=== PATIENT | female | born 1995 | race African-American/Black ===

== ENCOUNTER 2025-09-17 09:57 | Emergency (ER) | payer SELFPAY ==
[2025-09-17 09:58] VITALS: BP 157/89; PULSE 91; RESP 18; TEMP 36.1; O2SAT 100; BMI 36.7
--- NOTE | 2025-09-17 10:31 | CT_ITS ---
EXAM: NONCONTRAST CT SCAN OF THE HEAD CLINICAL HISTORY: Headache, mass TECHNIQUE: Serial axial series through the head were obtained without contrast. 2-D coronal and sagittal reformats were then obtained. FINDINGS: Brain: There is no acute large territorial infarct, intracranial hemorrhage, midline shift or mass effect. The sella and pineal gland regions appear unremarkable. There is no evidence of cerebellar tonsillar herniation. Ventricles: There is no acute hydrocephalus. Basilar cisterns are patent. Paranasal sinuses: Well-aerated Mastoid air cells: Well-aerated. Calvarium: The bony calvarium is intact. Orbits: The bilateral globes are symmetric, without retrobulbar compressive mass lesion or hemorrhage. CT/Brain/Head without Contrast IMPRESSION: No acute intracranial pathology. Reading [facility]
--- NOTE | 2025-09-17 10:32 | EDS_ITS ---
HPI History of Present Illness Chief Complaint: Headache Narrative Narrative: Patient is a 30-year-old female presenting to the emergency department for a headache that started 3 days ago. She reports she has had headaches before but they have never lasted this long. She denies any recent head trauma or falls. Denies any recent chiropractic manipulations of her head or neck. She denies any known fevers. She states that the headache started gradually and worsened. Denies any double vision or blurry vision. Denies any focal numbness or weakness. She states she took DayQuil and NyQuil for the symptoms but has not taken anything today yet for her headache. She describes it as a throbbing headache on the right side and top of her head. [facility] Medical History (Updated 09/17/25 @ 11:[address] Marley Dan MD) Headache Allergy/AdvReac Type Severity Reaction Status Date / Time No Known Allergies Allergy Verified 09/17/25 09:58 Social History Smoking Status: Unknown if ever smoked ROS ROS ED ROS Narrative see HPI EXAM Physical Exam Narrative Exam Narrative: Vital signs: Reviewed General: Alert and oriented x 3. No acute distress HEENT: Head is normocephalic and atraumatic, sinuses nontender, pupils equal round and reactive. Nares are patent. Oropharynx and throat exams normal. Neck: Supple without lymphadenopathy nontender. Normal active range of motion of neck. No nuchal rigidity. Cardiovascular: Regular rate and rhythm, no murmurs. No rubs or gallops. Normal S1 and S2 Respiratory: Clear to auscultation bilaterally. No wheezes, rales, rhonchi Abdominal: Soft and nontender. Normal bowel sounds. No guarding or rebound. Nonsurgical abdomen Extremities: No tenderness. No bruising. Normal range of motion. Normal sensation. Skin: No rash or redness. Neurological: Cranial nerves II through XII are grossly intact. Normal strength and sensation. Normal cerebellar function The rest of the physical exam is unremarkable Const Vital Signs: 09/17/25 09:58 09/17/25 11:59 Temperature 97 F L 97 F L Temperature Source Temporal Pulse Rate 91 91 Respiratory Rate 18 18 Blood Pressure 157/89 H 157/89 H Blood Pressure Mean 111 111 Pulse Ox 100 100 MDM MDM MDM Narrative Medical decision making narrative: Patient is a 30-year-old female presenting to the emergency department for a headache. Patient was seen and examined. Vitals are stable. Patient resting in bed comfortably in no acute distress. On initial evaluation the patient she is playing on her phone lying in bed comfortably with the lights on. Patient states she is never had a CT scan of her brain before. Has had headaches like this in the past but states the length of time that she has a headache is abnormal for her. Will obtain a CT brain to rule out intracranial mass. Will also give a migraine cocktail. She is afebrile, well-appearing and has normal active range of motion of the neck with no nuchal rigidity, I do not think this is meningitis or encephalitis. No altered mental status. She is neuro intact. CT the brain shows no acute intracranial pathology. Urine preg negative. Patient was reevaluated about an hour after the migraine cocktail. States that her headache is now gone. 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 Patient is appropriate for outpatient management. Patient discharged from the Emergency Department. I do not feel that the patient's evaluation reveals any acute reason for admission at this time. I instructed them to either follow-up with their primary care physician or promptly return to the Emergency Department for reevaluation should symptoms worsen or new symptoms develop. I explained what symptoms would indicate the need to return to the emergency department. Shared decision making was used. The patient voiced understanding of the treatment plan and is agreeable with it. Clinical impression Headache History & Record Review Discussion w/independent historian: Patient Lab Data Labs: Laboratory Results - last 24 hr 09/17/25 10:12 Urine Test Negative Radiography Diagnostic Testing: Clinical Impression(s) from Imaging Studies Brain CT 09/17/25 10:31 IMPRESSION: No acute intracranial pathology. Reading Location: [facility] Discharge Plan Triage Chief Complaint: Headache ED Provider: Marley Dan Dx/Rx/DC Orders Clinical Impression: Headache Instructions: ED Headache Unspecified Primary Care Provider: Care Physician,No Primary Referrals: Joel Angeles MD [Med Staff - Active Staff, Family Practice] - As soon as possible Care Physician,No Primary [Primary Care Provider, Medical] Activity Restrictions/Additional Instructions: Follow-up with your primary care doctor soon as possible. Your evaluation in the Emergency Department did not reveal any acute reason for admission. However, I want to emphasize that you may be early in the course of a disease process or illness even if it is not present. For this reason you should follow-up within 24 hours for reevaluation with either your primary care physician or if necessary back here in the Emergency Department. You should return to the Emergency Department immediately if your symptoms worsen or new symptoms develop. Print Language: [place] Disposition Disposition: Home, Self Care Discharge Date/Time: 09/17/25 12:00
[2025-09-17] MEDS: DiphenhydrAMINE 50 MG/ML Syringe 25 MG IV (10:55)
[2025-09-17] MEDS: 0.9% Normal Saline (1000mL) 1,000 ML 999 ML IV (10:55)
[2025-09-17 11:06] LABS: Internal QC Validated? YES +Cl - CLEAR BKGD; Pregnancy, Urine Negative Negative; Record Kit Lot#,Urine Preg 0000980607
[2025-09-17 11:59] VITALS: BP 157/89; PULSE 91; RESP 18; TEMP 36.1; O2SAT 100
--- NOTE | 2025-09-17 11:59 | ED.RN ---
PATIENT INFORMED BY THIS RN AND DR. GRAVES SHE CANNOT DRIVE FOR THE NEXT 6 HOURS. PATIENT STATES SHE UNDERSTANDS.
== END 2025-09-17 12:00 | disposition home or self-care (01) ==
PROVIDERS: Emergency Provider Student in an Organized Health Care Education/Training Program; Visit Provider Student in an Organized Health Care Education/Training Program
DX: R51.9 Headache, unspecified (principal)
CPT/HCPCS: 70450; 81025; 96361; 96374; 96375; 99283; A4216